=== PATIENT | female | born 1935 | race Caucasian/White ===

== ENCOUNTER 2020-07-01 02:02 | Emergency (ER) | payer MEDICARE ==
[~2020-07-01] VITALS: Ht 154.9 cm; Wt 72.6 kg
[2020-07-01 02:11] VITALS: Ht 154.9 cm; Wt 72.6 kg
[2020-07-01] MEDS ORDERED: ADVIL200 MG PO (02:12)
[2020-07-01] MEDS ORDERED: SYNTHROID112 MCG (02:13)
[2020-07-01] MEDS ORDERED: HYDROCODON-ACE1 EAC7 PO (02:44)
[2020-07-01] MEDS ORDERED: ZOFRAN ODT4 MG/UDTAB PO (02:44)
[2020-07-01 04:03] VITALS: BP 167/88
== END 2020-07-01 03:40 | disposition home or self-care (01) ==
LOC: D.ER 02:02
DX: S42.301A Unspecified fracture of shaft of humerus, right arm, initial encounter for closed fracture (principal); E07.9 Disorder of thyroid, unspecified; W01.0XXA Fall on same level from slipping, tripping and stumbling without subsequent striking against object, initial encounter; Y93.9 Activity, unspecified; Y92.9 Unspecified place or not applicable; M25.511 Pain in right shoulder

== ENCOUNTER 2020-07-07 05:13 | Day surgery (SDC) | payer MEDICARE, OTHER, BC ==
[~2020-07-07] VITALS: Ht 152.4 cm; Wt 72.7 kg
[~2020-07-07 05:13] MED LIST: ADVIL200 MG PO; HYDROCODON-ACE1 EAC7 PO; SYNTHROID112 MCG; ZOFRAN ODT4 MG/UDTAB PO
[2020-07-07 05:43] LABS: HEMATOCRIT 39.6 % (36.0-48.0); HEMOGLOBIN 12.9 g/dL (12-16); LYMPHOCYTES 38.9 % (15-50); MCH 29.7 pg (26.0-34.0); MCHC 32.6 g/dL (31.0-37.0); MEAN PLATELET VOLUME 9.2 fL (7.4-10.4); NEUTROPHILS 48.2 % (40-80); PLATELET COUNT 284 10x3/uL (130-400); RBC 4.35 10x6/uL (4.00-5.40); RDW 12.9 % (11.5-14.5); WBC 6.1 10x3/uL (4.8-10.8)
[2020-07-07 06:13] VITALS: BP 136/72; BMI 31.3
[2020-07-07 06:26] LABS: ANION GAP 13.2 mmol/L (8-16); CALCIUM 9.3 mg/dL (8.5-10.1); CARBON DIOXIDE 26.5 mmol/L (21.0-32.0); CREATININE - SERUM 1.1 mg/dL (0.6-1.3); POTASSIUM - SERUM 3.7 mmol/L (3.5-5.1)
[2020-07-07 11:07] VITALS: BP 142/57
[2020-07-07 11:27] VITALS: BP 110/55; Ht 152.4 cm; Wt 72.7 kg
[2020-07-07 12:05] VITALS: BP 126/77
[2020-07-07 16:40] VITALS: BP 105/54
[2020-07-07 20:00] VITALS: BP 92/55
--- NOTE | 2020-07-07 20:00 | NUR ---
ALERT RESTING IN BED SLING IN PLACE TO RIGHT ARM, DENIES PAIN AT THIS TIME, SEE SHIFT ASSESSMENT, CALL LIGHT IN REACH, DAUGHTER AT BEDSIDE
[2020-07-08 00:38] VITALS: BP 99/58
[2020-07-08 01:30] VITALS: BP 106/56
[2020-07-08 04:00] VITALS: BP 104/47
[2020-07-08 06:41] LABS: HEMOGLOBIN 10.7 g/dL (12-16); MCH 29.2 pg (26.0-34.0); MCHC 31.5 g/dL (31.0-37.0); MCV 92.6 fL (80.0-100.0); RBC 3.67 10x6/uL (4.00-5.40); RDW 13.7 % (11.5-14.5)
[2020-07-08 06:58] LABS: WBC 11.6 10x3/uL (4.8-10.8)
[2020-07-08 07:31] VITALS: BP 121/57
--- NOTE | 2020-07-08 07:40 | NUR ---
AWAKE AND ALERT. ORIENTED X3. SCD'S HOOKED UP AT THIS TIME. DENIES NEEDS.
--- NOTE | 2020-07-08 08:30 | NUR ---
ATE ONLY A FEW BITES OF EGGS. REFUSED OFFER OF ALTERNATIVE MEAL. AWAKE AND ALERT. ORIENTED X3. LUNGS ARE CLEAR BILATERALLY, NO COUGH NOTED. REPORTS USING IS INSTRUCTED. SKIN IS INTACT WITHOUT REDNESS EXCEPT INCISION TO RIGHT SHOULDER WHICH HAS A DRY INTACT DRESSING IN PLACE. IV TO LEFT FOREARM IS PATENT WITHOUT REDNESS AT INSERTION SITE. FAMILY AT BEDSIDE. RIGHT ARM PLACED UP ON PILLOW, ICE APPLIED TO AREA. REQUESTED AND GIVEN ONE HYDROCODONE FOR PAIN LEVEL 8. WILL MONITOR.
[2020-07-08 11:41] VITALS: BP 110/58
--- NOTE | 2020-07-08 13:31 | OP ---
PATIENT NAME: DAVID NUGENT MEDICAL RECORD: [id number] :35 LOCATION:D. D.1210 ADMISSION DATE: SURGEON: LILIANA ZAZUETA MD DATE OF OPERATION: 07/07/2020 PREOPERATIVE DIAGNOSIS: Right proximal humerus fracture. POSTOPERATIVE DIAGNOSIS: Right proximal humerus fracture. PROCEDURE PERFORMED: ORIF, right proximal humerus. INDICATIONS FOR PROCEDURE: Ms. Nugent is an 85-year-old female who fell approximately 1 week ago and injured her right shoulder. She was reaching out when she fell and landed on her right side. She was seen in the emergency department. X-ray showed fracture of the proximal humerus. On evaluation, she was noted to have a fracture of the surgical neck with the line also extending through the greater and lesser tuberosity with displacement of those pieces. I talked with her about the injury and the options for conservative versus surgical management. She has elected to proceed with surgery for operative repair. Risks, benefits, and alternatives of surgery were discussed with the patient and consent was obtained. DESCRIPTION OF PROCEDURE: The patient was met in the holding area where her identity and confirmation of procedure was performed. The right upper extremity was marked. She was taken to the operating room where she was placed supine on the operating table and anesthesia was administered. She was then positioned in the beach chair position. Right upper extremity was prepped and draped in a sterile fashion. The patient received preoperative antibiotics and time-out was performed before initiating the case. On initiation of the case, a deltopectoral approach was utilized for exposure. We incised through the skin and subcutaneous tissues, dissected down to the cephalic vein. The interval between the deltoid and pectoralis was then utilized for deep exposure. We dissected down to the pectoral fascia, released it superiorly, and then was able to easily identify our fracture. There was a fracture between the tuberosities extending into the rotator cuff. Fracture hematoma was debrided. A #2 MaxBraid suture was then ran through the posterior portion of the greater tuberosity and brought back along the tear. We then ran a similar Krackow suture through the anterior portion of the cuff. This was able to provide good reapproximation of our cuff pieces. A Biomet proximal humerus plate was then positioned along the shaft and a wire was used to temporarily fixate the plate into the head and we were able to confirm our positioning and alignment. We were pleased with this position. We therefore placed a cortical screw through the oblong hole of the plate into the shaft. There was still some displacement of the plate around the tuberosities. The wire was therefore removed and a second cortical screw was placed in the more superior hole to compress the plate to the bone. This provided good alignment of our plate and we were pleased with our reduction at this point. We then began placing proximal locking screws. A central home run screw was placed. Four more locking screws were placed superiorly using the locking guide. These were measured and approximately 6 mm was taken off as the screw was placed. Imaging was obtained to assure safe placement of our screws. We were pleased with the fixation and positioning and 1 final locking screw was placed at the inferior hole in the shaft of the plate. We then ran our MaxBraid suture through the superior holes in the plate and we were able to tie these to the plate to secure our fixation of the tuberosity pieces. A separate piece of MaxBraid suture was used at the interval between the rotator cuff where there OPERATIVE REPORT [id number] DAVID NUGENT was still a slight split, which provided good reapproximation and repair of our rotator cuff as well. Final images were obtained that showed good lock fixation of our fractures and tuberosities. There was safe placement of our hardware. The wound was then irrigated thoroughly with saline. The deltopectoral interval was closed with 2-0 Vicryl. Subcutaneous tissues were closed with 3-0 Vicryl and the skin was closed with patrice. A sterile dressing was placed. The patient was placed into a sling and turned back over to anesthesia. She was awakened, extubated, and taken to recovery room in stable condition. POSTOPERATIVE PLAN: The patient is going to be admitted overnight for pain control and monitoring. She needs to remain in the sling at all times with instructions for no shoulder range of motion. She can come out to perform elbow, wrist, and hand range of motion. Plan home with family. ANESTHESIA: General with peripheral nerve block. COMPLICATIONS: None. ESTIMATED BLOOD LOSS: 100 mL. NTS:[id number] Voice Confirmation ID: [id number] DOCUMENT ID: [id number] LILIANA ZAZUETA MD at 1331 CC: [id number] DICTATION DATE: 07/07/20 1036 PRODUCT ASSURANCE ENGINEER: 07/07/20 [facility] [address] [place], [id number]
--- NOTE | 2020-07-08 13:55 | NUR ---
DISCHARGED TO HOME AMBULATORY WITH FAMILY. DISCHARGE INSTRUCTIONS GIVEN BOTH VERBALLY AND WRITTEN. ALL QUESTIONS ANSWERED. PATIENT AND CAREGIVER VERBALIZED UNDERSTANDING OF SAME. SL TO LEFT FOREARM D/C WITH CATHETER INTACT. ALL BELONGINGS WITH PATIENT. DRESSING CHANGED PER DR. ZAZUETA'S NURSE. FAMILY INSTRUCTED IN SAME. VERBALIZED UNDERSTANDING OF SAME.
== END 2020-07-08 14:27 | disposition home or self-care (01) ==
LOC: D.OPS 05:13 → D.PAN 07:30 → D.M3 10:57 → D.OPS 07-08 14:27
PROVIDERS: Anesthesiology; ATTEND Orthopaedic Surgery
DX: S42.201A Unspecified fracture of upper end of right humerus, initial encounter for closed fracture (principal); X58.XXXA Exposure to other specified factors, initial encounter